=== PATIENT | male | born 1945 | race Caucasian/White ===

== ENCOUNTER 2020-06-16 21:38 | Emergency (ER) | payer OTHER, MEDICARE, SELFPAY ==
--- NOTE | 2020-06-16 | ECG_ITS ---
Test Reason : CP Blood Pressure : / mmHG Vent. Rate : 074 BPM Atrial Rate : 074 BPM P-R Int : 238 ms QRS Dur : 092 ms QT Int : 392 ms P-R-T Axes : 093 069 068 degrees QTc Int : 435 ms Sinus rhythm with 1st degree A-V block Otherwise normal ECG When compared with ECG of 12-APR-2013 07:26, [place] interval has increased Referred By: Terrell Ricketts Electronically Signed By:Marcial Oates
--- NOTE | ~2020-06-16 | XR_ITS ---
EXAMINATION: XR CHEST CLINICAL INFORMATION: Chest pain COMPARISON: Chest radiograph 04/11/2013 TECHNIQUE: Frontal view of the chest was obtained. FINDINGS: No significant abnormality is noted involving the heart, lungs, mediastinum, bony thorax or soft tissues. Prominence of the superior mediastinum seen previously is no longer present. Degenerative changes have progressed in the spine. XR/XR chest 1V IMPRESSION: No acute intrathoracic disease.
[2020-06-16 21:45] VITALS: BP 165/85; PULSE 78; RESP 16; TEMP 36.6; O2SAT 97; BMI 27.2
[2020-06-16 22:22] LABS: MANUAL DIFF FLAG NO
[2020-06-16 22:23] LABS: Basophils Absolute Auto 0.1 X10*3/uL (0.0-0.2); Basophils Percent Auto 0.5 % (0-2); Eosinophils Absolute Auto 0.3 X10*3/uL (0.0-0.4); Eosinophils Percent Auto 2.2 % (0-4); Hematocrit 48.2 % (42-52); Imm Gran Abs Auto 0.07 X10*3/uL (0.00-0.03); Imm Gran Pct Auto 0.5 % (0.0-0.4); Lymphocytes Absolute Auto 2.4 X10*3/uL (1.2-4.9); Lymphocytes Percent Auto 15.9 % (20-40); Mean Corpuscular HGB Conc 31.1 g/dl (31.0-36.0); Mean Corpuscular Hemoglobin 30.2 pg (27.0-33.0); Mean Platelet Volume 8.6 fL (9.4-12.4); Monocytes Absolute Auto 1.3 X10*3/uL (0.1-1.2); Monocytes Percent Auto 8.9 % (2-11); Neutrophils Absolute Auto 10.7 X10*3/uL (2.0-8.3); Platelet Count 201 X10*3/uL (160-400); Red Blood Count 4.97 X10*6/uL (4.60-5.80); Red Cell Distribution Width 12.6 % (11.0-16.0); White Blood Count 14.9 X10*3/uL (4.8-10.8)
[2020-06-16 22:51] LABS: Alanine Aminotransferase 24 U/L (0-40); Alkaline Phosphatase 85 U/L (39-117); Anion Gap 10 (12-20); Aspartate Amino Transferase 28 U/L (5-37); Bilirubin Total 0.4 mg/dL (0.0-1.0); Blood Urea Nitrogen 16 mg/dL (9-16); Carbon Dioxide 27 mmol/L (22-29); Chloride 107 mmol/L (96-108); Creatinine Clr Calc Pharmacy 67.9; Estimated Glomerular Filt Rate > 60; Glucose Random 103 mg/dL (60-115); Potassium 4.1 mmol/L (3.3-5.1); Sodium 140 mmol/L (135-145); Total Protein 6.6 g/dL (6.5-8.0)
[2020-06-16 22:52] LABS: B Type Natriuretic Peptide 102 pg/mL (<100); Troponin-I High Sensitivity 3.7 ng/L (<3.5-35.0)
[2020-06-16 23:39] VITALS: BP 139/80; PULSE 68; RESP 15; O2SAT 96
--- NOTE | 2020-06-17 00:11 | ED.SOB ---
HPI - SOB/Dyspnea General Chief Complaint: Chest Pain Stated Complaint: diff breathing Time Seen by Provider: 06/16/20 23:56 Source: patient Mode of arrival: ambulatory Limitations: no limitations History of Present Illness HPI Narrative: 75-year-old male walked in today after had a sudden onset of difficulty breathing and lightheadedness, light left-sided chest pain with no radiation, symptoms started 6 hours ago, patient felt very anxious try to calm her self down, patient drove himself to the hospital when he started to feel better, patient was waiting in the waiting room and symptoms was already resolved. Patient declined coughing, no recent travel, no prolonged immobilization, no lower extremity swelling, no fever, no chills, no history of recent exposure to a sick contact. Patient had a history of PA which presented different than this presentation, patient follow-up with his guard chief every year, patient had a full cardiac workup by his guard chief 3 months ago and was unremarkable. Related Data Allergies Allergy/AdvReac Type Severity Reaction Status Date / Time codeine [CODEINE] Allergy Unknown UNKNOWN Unverified 12/26/19 15:02 Review of Systems Review of Systems: All other systems are reviewed and are negative Constitutional: Reports as per HPI and Reports no additional constitutional complaints Eyes: Reports as per HPI and Reports no additional eye complaints Reports system reviewed and no additional complaints, except as documented Cardiovascular: Reports as per HPI and Reports no additional cardiovascular complaints Respiratory: Reports as per HPI and Reports no additional respiratory complaints Gastrointestinal: Reports as per HPI and Reports no additional gastrointestinal complaints Genitourinary: Reports no additional female genitourinary complaints Musculoskeletal: Reports no additional musculoskeletal complaints Skin/Breast: Reports system reviewed and no additional complaints, except as docu Psychiatric: Reports no additional psychiatric complaints Endocrine: Reports no additional endocrine complaints Hematologic/Lymphatic: Reports no additional hematologic/lymphatic complaints Allergic/Immunologic: Reports no additional allergic/immunologic complaints Reports system reviewed and no additional complaints, except as documented and Reports Abnormal speech present [facility] Past Medical History Medical History High cholesterol HTN (hypertension) Past heart attack (~04/10/91) Surgical History H/O heart surgery Previous back surgery Social History Social History Alcohol intake: unknown Smoking Status: Never smoker Use of substances other than those prescribed or required for medical reasons: No Advance Directives: No Advance Directives Information Provided: No Physical Exam Vital Signs: Vital Signs: Last Vital Signs Temp 97.9 F 06/16/20 21:45 Pulse 68 06/16/20 23:39 Resp 15 06/16/20 23:39 BP 139/80 06/16/20 23:39 Pulse Ox 96 06/16/20 23:39 Body Mass Index 27.2 Vital signs have been reviewed as appeared to be correct. Blood pressure normal. Heart rate normal. Respiration rate normal. Temperature normal. Oxygen saturation normal. Appearance: Alert. Oriented X3. No acute distress, appearing anxious. Head: Normal external exam. Normocephalic. Atraumatic. No Myers signs noted. No raccoon eyes noted Eyes: PERRLA. EOMI. Conjunctiva and sclera normal. Eyelids normal. ENT: TM's Normal. Pharynx normal. Uvula midline. Moist mucous membranes. No trismus noted. No drooling noted. No muffled voice noted. Neck: Normal inspection. Neck supple. FROM. No adenopathy. Thyroid Normal. No meningeal signs. No neck mass noted. CVS: Normal heart rate and rhythm. Heart sound normal. No murmurs noted. Pulses normal throughout. Respiratory: No respiratory distress. Painless inspiration. Breath sounds normal. No wheezes/rales/rhonchi noted. Chest nontender. No accessory muscle usage noted or decreased air movement noted. Abdomen: Soft and nontender. Bowel sounds normal in all 4 quadrants. No distention noted. No organomegaly noted. No visible injury noted. Back: No CVA tenderness. Full range of motion noted. Skin: Skin warm and dry. Normal skin color. Normal skin turgor. No rashes/lesions/lacerations noted. Extremities: No lower extremity edema. Extremities exhibit normal range of motion. Extremities nontender. Neuro: Oriented X 3. No motor deficit. No sensory deficit. Reflexes normal. Course Course Course Narrative: Assessment and plan. 75-year-old male with history of hypertension, prior PA in the past with close monitoring by guard chief as an outpatient presented with sudden onset of shortness of breath that lasted for about 10-15 minutes then resolved spontaneously. EKG was unremarkable for ischemic changes, troponin was negative x2. Patient had no risk for PE with negative D-dimer, unremarkable chest x-ray. Will discharge to follow up with primary doctor. Leukocytosis of unclear etiology. MDM - SOB/Dyspnea Lab Data Attestation: I reviewed the patient's lab results. Result diagrams: 06/16/20 22:17 06/16/20 22:17 Labs: Lab Results 06/16/20 06/16/20 06/16/20 Range/Units 22:17 22:17 22:17 WBC 14.9 H (4.8-10.8) X10*3/uL RBC 4.97 (4.60-5.80) X10*6/uL Hgb 15.0 (14.0-18.0) g/dl Hct 48.2 (42-52) % MCV 97.0 (80-98) fL MCH 30.2 (27.0-33.0) pg MCHC 31.1 (31.0-36.0) g/dl RDW 12.6 (11.0-16.0) % Plt Count 201 (160-400) X10*3/uL MPV 8.6 L (9.4-12.4) fL Immature Gran % (Auto) 0.5 H (0.0-0.4) % Neut % (Auto) 72.0 (45-73) % Lymph % (Auto) 15.9 L (20-40) % [place] % (Auto) 8.9 (2-11) % Eos % (Auto) 2.2 (0-4) % Baso % (Auto) 0.5 (0-2) % Lymph # (Auto) 2.4 (1.2-4.9) X10*3/uL [place] # (Auto) 1.3 H (0.1-1.2) X10*3/uL Eos # (Auto) 0.3 (0.0-0.4) X10*3/uL Baso # (Auto) 0.1 (0.0-0.2) X10*3/uL Abs Immat Gran (auto) 0.07 H (0.00-0.03) X10*3/uL Absolute Neuts (auto) 10.7 H (2.0-8.3) X10*3/uL Absolute Nucleated RBC 0.000 (0.0-0.012) X10*3/uL Nucleated RBC % (auto) 0.0 (0.0-0.2) /100WBC Hold Blue Top SEE NOTE Sodium 140 (135-145) mmol/L Potassium 4.1 (3.3-5.1) mmol/L Chloride 107 (96-108) mmol/L Carbon Dioxide 27 (22-29) mmol/L Anion Gap 10 L (12-20) BUN 16 (9-16) mg/dL Creatinine 0.94 (0.5-1.4) mg/dL Estim Creat Clear Calc 67.9 Estimated GFR > 60 Random Glucose 103 (60-115) mg/dL Calcium 9.0 (8.4-10.2) mg/dL Total Bilirubin 0.4 (0.0-1.0) mg/dL AST 28 (5-37) U/L ALT 24 (0-40) U/L Alkaline Phosphatase 85 (39-117) U/L Troponin I High Sens (<3.5-35.0) ng/L B-Natriuretic Peptide (<100) pg/mL Total Protein 6.6 (6.5-8.0) g/dL Albumin 4.0 (3.5-5.0) g/dL 06/16/20 Range/Units 22:17 WBC (4.8-10.8) X10*3/uL RBC (4.60-5.80) X10*6/uL Hgb (14.0-18.0) g/dl Hct (42-52) % MCV (80-98) fL MCH (27.0-33.0) pg MCHC (31.0-36.0) g/dl RDW (11.0-16.0) % Plt Count (160-400) X10*3/uL MPV (9.4-12.4) fL Immature Gran % (Auto) (0.0-0.4) % Neut % (Auto) (45-73) % Lymph % (Auto) (20-40) % [place] % (Auto) (2-11) % Eos % (Auto) (0-4) % Baso % (Auto) (0-2) % Lymph # (Auto) (1.2-4.9) X10*3/uL [place] # (Auto) (0.1-1.2) X10*3/uL Eos # (Auto) (0.0-0.4) X10*3/uL Baso # (Auto) (0.0-0.2) X10*3/uL Abs Immat Gran (auto) (0.00-0.03) X10*3/uL Absolute Neuts (auto) (2.0-8.3) X10*3/uL Absolute Nucleated RBC (0.0-0.012) X10*3/uL Nucleated RBC % (auto) (0.0-0.2) /100WBC Hold Blue Top Sodium (135-145) mmol/L Potassium (3.3-5.1) mmol/L Chloride (96-108) mmol/L Carbon Dioxide (22-29) mmol/L Anion Gap (12-20) BUN (9-16) mg/dL Creatinine (0.5-1.4) mg/dL Estim Creat Clear Calc Estimated GFR Random Glucose (60-115) mg/dL Calcium (8.4-10.2) mg/dL Total Bilirubin (0.0-1.0) mg/dL AST (5-37) U/L ALT (0-40) U/L Alkaline Phosphatase (39-117) U/L Troponin I High Sens 3.7 (<3.5-35.0) ng/L B-Natriuretic Peptide 102 H (<100) pg/mL Total Protein (6.5-8.0) g/dL Albumin (3.5-5.0) g/dL Imaging Data Chest x-ray: Radiologist's impression: No acute pathology. ECG Data Interpretation: Normal sinus rhythm at 74 beats per minutes, 1st degree AV block otherwise unremarkable intervals, no ST-T changes. Discharge Plan Discharge Clinical Impression: Acute dyspnea, Leukocytosis (leucocytosis) Patient Disposition: Home, Self-Care Instructions: Dyspnea (ED) Referrals: Physician,Unknown [Primary Care Provider] - 2 days
[2020-06-17 00:35] LABS: D Dimer < 200 NG/ML
[2020-06-17 00:57] LABS: Troponin-I High Sensitivity 4.3 ng/L (<3.5-35.0)
== END 2020-06-17 01:00 | disposition home or self-care (01) ==
PROVIDERS: Emergency Provider Emergency Medicine
DX: R06.00 Dyspnea, unspecified (principal); D72.829 Elevated white blood cell count, unspecified; I10 Essential (primary) hypertension
CPT/HCPCS: 36415; 71045; 80053; 83880; 84484; 85025; 85379; 93005; 99283; 99285

== ENCOUNTER 2023-02-11 09:10 | Outpatient (AMB) | payer MEDICARE, SELFPAY ==
[2023-02-11 09:13] VITALS: BP 112/68; PULSE 64; TEMP 36.6; O2SAT 96; BMI 28.0
--- NOTE | 2023-02-11 09:13 | AM.OFFWIN_ITS ---
Intake Vital Signs 02/11/23 09:13 Height 5 ft 10 in Weight 195 lb 6 oz BMI 28.0 BP 112/68 Blood Pressure Location Rt brachial Position Sitting Pulse 64 Pulse Source Pulse Oximeter Temp 97.9 F Temp Source Temporal Artery Scan Pulse Oximetry (%) 96 Oxygen Delivery Method Room Air Intake Visit Reasons: [employer] Cough Intake Note: pt is here for c/o cough for a few weeks Patient Tobacco Use Status: Never used Tobacco Allergies codeine [CODEINE] Allergy (Unknown, Verified 02/11/23 09:24) UNKNOWN Do you need a note to return to daycare/school/sports/work: No HPI [employer] Cough HPI Details Patient is a 77-year-old male who comes the walk-in clinic complaining of a few weeks of cough. He states that he has history of sinus infection and believes is what is going on for him now. Cough is mildly productive in nature. He denies fever chills, nausea vomiting or diarrhea, weakness, malaise or myalgias, chest pain or shortness of breath, ear pain, difficulty hearing, sore throat, or other significant associated symptoms. [facility] Medical History High cholesterol HTN (hypertension) Past heart attack (~04/10/91) Surgical History H/O heart surgery Previous back surgery Social History Alcohol intake: unknown Patient Tobacco Use Status: Never used Tobacco Review of Systems Const All systems reviewed & are unremarkable except as noted in HPI and below Physical Exam Vital Signs: Last Vital Signs Temp 97.9 F 02/11/23 09:13 Pulse 64 02/11/23 09:13 BP 112/68 02/11/23 09:13 Pulse Ox 96 02/11/23 09:13 Oxygen Delivery Method Room Air 02/11/23 09:13 BMI result Body Mass Index 28.0 Const General: cooperative, healthy appearing, comfortable, no acute distress, alert, awake, Physically active and well groomed; No anxious, diaphoretic, ill appearing, intoxicated appearing, poor hygiene or tired appearing Nutritional Appearance: average body habitus Orientation/consciousness: oriented to person Limitations: no limitations HEENT Head: Yes normal to inspection, Yes normocephalic and Yes atraumatic Ears: hearing grossly normal bilaterally, external ears normal, TM's normal bilaterally and EAC's normal General nose exam: Normal external nose present, Normal nares present, No nasal polyps present, Normal septum present, Abnormal mucous membranes and turbinates present and Nasal discharge present Face and sinus: Yes normal facial exam, Yes face symmetric and Yes sinus te nderness Mouth: Normal oral and palatal mucosa present, lip normal and tongue normal Throat: Yes abnormal tonsil (mildly erythematous bilaterally), No peritonsillar mass, Yes postnasal drainage, No uvular edema and No cobblestoning Eyes General: appearance normal, both eyes and all related structures Neck Neck: Yes normal visual inspection, Yes trachea midline, Yes supple and No anterior neck swelling Resp Effort & Inspection: normal respiratory effort, able to speak in complete sentences, no audible wheezes, Actively coughing (Rare cough), no grunting, not labored, no nasal flaring, no retractions and symmetric chest movement Auscultation: clear to auscultation bilaterally, no crackles, no rales, no rhonchi, no wheezes, lung sounds not diminished and No rub present Cardio Rate: regular rate Skin Other: Good color, warm and dry Neuro General: oriented to person Psych Appearance: grossly normal Mental Status: mental status grossly normal Speech and movement: Normal speech and movement present Affect: normal affect Attitude: cooperative Thought process: Normal thought process present Insight: Good insight present (Psych) Judgement: Good judgement present (Psych) Assessment & Plan Assessment & Plan (1) Upper respiratory infection: Code(s): J06.9 - Acute upper respiratory infection, unspecified Plan Patient is an elderly male apparent acute viral respiratory infection. Pending flu COVID and RSV testing. I wrote him a course of Tessalon Perles and azithromycin, as he is having persistent cough, and he can take Mucinex with adequate water intake as needed also. He knows to follow up if symptoms persist or worsen Orders: Orders SARS-CoV2/FLU/RSV 02/11/23 R05.9 - Cough, unspecified Medications: New benzonatate 200 mg PO BID-TID PRN 30 caps 0RF cough azithromycin take 500 mg today (day 1), then 250 mg for 4 days (days 2-5) PO 6 tabs 0RF Coding Level of Care Code New Pt Level 4 (99079) Diagnoses Upper respiratory infection J06.9
== END 2023-02-11 09:41 | disposition home or self-care (01) ==
PROVIDERS: Visit Provider Physician Assistant Medical
DX: J06.9 Acute upper respiratory infection, unspecified (principal)
CPT/HCPCS: 99051; 99204

== ENCOUNTER 2023-02-11 09:44 | Outpatient (REF) | payer MEDICARE, OTHER, SELFPAY ==
[2023-02-11 11:55] LABS: Influenza A PCR NEGATIVE (Negative); Influenza B PCR NEGATIVE (Negative); Resp Syncy Virus RNA Qual PCR NEGATIVE (Negative); SARS COV2 PCR INHOUSE NEGATIVE (Negative)
== END 2023-02-11 09:45 | disposition home or self-care (01) ==
LOC: HO.LAB 09:44
PROVIDERS: Visit Provider Physician Assistant Medical
DX: R05.9 Cough, unspecified (principal); Z11.52 Encounter for screening for COVID-19
CPT/HCPCS: 0241U